=== PATIENT | female | born 1955 | race Caucasian/White ===

== ENCOUNTER → 2017-02-08 | Outpatient (CLI) | payer OTHER | END | disposition home or self-care (01) | LOC: CFH 14:58 | PROVIDERS: ATTEND Family Medicine | DX: N63.13 Unspecified lump in the right breast, lower outer quadrant (principal); R92.2 Inconclusive mammogram | CPT/HCPCS: 76641; G0206 ==

== ENCOUNTER → 2017-02-10 | Outpatient (CLI) | payer OTHER ==
[~2017-02-10] MED LIST: LIDOCAINE 1%-EPI 1:100K, 30ML ONE
== END | disposition home or self-care (01) ==
LOC: CFH 14:16
PROVIDERS: ATTEND Family Medicine
DX: C50.911 Malignant neoplasm of unspecified site of right female breast (principal)
CPT/HCPCS: 19083; 88305; G0206; J3490

== ENCOUNTER → 2017-03-03 | Outpatient (CLI) | payer BC | END | disposition home or self-care (01) | LOC: CFH 15:29 | PROVIDERS: ATTEND Surgery | DX: I65.23 Occlusion and stenosis of bilateral carotid arteries (principal) | CPT/HCPCS: 93880 ==

== ENCOUNTER 2017-04-06 10:29 | Day surgery (SDC) | payer BC ==
[2017-04-05 10:24] LABS: ALANINE AMINOTRANSFERASE 82 U/L (12-78); ALBUMIN 3.9 g/dL (3.4-5.0); ANION GAP 9 mmol/L (5-15); CALCIUM 8.6 mg/dL (8.5-10.1); CHLORIDE 102 mmol/L (98-107); CREATININE 0.78 mg/dL (0.55-1.02)
[2017-04-05 10:26] LABS: ALKALINE PHOSPHATASE 117 U/L (45-117); BILIRUBIN,TOTAL 0.6 mg/dL (0.2-1.0); TOTAL PROTEIN 7.8 g/dL (6.4-8.2)
[~2017-04-06] VITALS: Ht 172.7 cm; Wt 85.1 kg
[~2017-04-06 10:29] MED LIST changes: +AMLO5TAB2 PO; +ESTR0.5T PO; +GABA300C10 PO; +HYDR-3237 PO; +IBUP-1222 PO; -LIDOCAINE 1%-EPI 1:100K, 30ML ONE; +LOSA1TAB25 PO
[2017-04-06] MEDS ORDERED: MIDAZOLAM 1 MG/ML, 2ML ONE (12:05)
[2017-04-06] MEDS ORDERED: FENTANYL PF 250 MCG/5ML ONE (12:05)
[2017-04-06] MEDS ORDERED: PROPOFOL 10 MG/ML, 20ML ONE (12:06)
[2017-04-06] MEDS ORDERED: NEOSTIGMINE 1 MG/ML, 10ML ONE (12:06)
[2017-04-06] MEDS ORDERED: ROCURONIUM 10 MG/ML,10ML ONE ×2 (12:06→15:06)
[2017-04-06] MEDS ORDERED: GLYCOPYRROLATE 0.2MG/1ML, 5ML ONE (12:07)
[2017-04-06] MEDS ORDERED: DEXAMETHASONE 4 MG/ML, 1ML ONE ×2 (12:07)
[2017-04-06] MEDS ORDERED: ONDANSETRON 2MG/ML, 2ML ONE (12:07)
[2017-04-06] MEDS ORDERED: CEFAZOLIN 1,000 MG ONE ×3 (12:08→13:19)
[2017-04-06 12:29] VITALS: BP 159/91
[2017-04-06] MEDS ORDERED: LACTATED RINGERS 1,000 ML IV SCH (12:35)
[2017-04-06] MEDS ORDERED: BACITRACIN 50,000 UNIT ONE (13:19)
[2017-04-06] MEDS ORDERED: GENTAMICIN 80 MG/2 ML ONE (13:19)
[2017-04-06] MEDS ORDERED: ISOSULFAN BLUE 10 MG/ML, 5ML IV ONE (13:19)
[2017-04-06] MEDS ORDERED: EPINEPHRINE 1 MG/ML, 1ML ONE (13:19)
[2017-04-06] MEDS ORDERED: BUPIVACAINE/PF 0.5% ONE (13:19)
[2017-04-06] MEDS ORDERED: MEPERIDINE/PF 25MG/0.5ML IVPush PRN (13:30)
[2017-04-06] MEDS ORDERED: ACETAMINOPHEN 325 MG TABLET PO PRN (13:30)
[2017-04-06] MEDS ORDERED: PROMETHAZINE 25 MG/ML, 1ML IV PRN (13:30)
[2017-04-06] MEDS ORDERED: hydrALAzine 20 MG/ML, 1ML IV PRN (13:30)
[2017-04-06] MEDS ORDERED: ONDANSETRON 2MG/ML, 2ML IVPush PRN (13:30)
[2017-04-06] MEDS ORDERED: LABETALOL 5MG/ML, 20ML IV PRN (13:30)
[2017-04-06] MEDS ORDERED: OXYcodone 5 MG/5 ML ORAL.SOL UDC PO PRN (13:30)
[2017-04-06] MEDS ORDERED: HYDROmorphone 1 MG/ML, 1ML IV PRN (13:30)
[2017-04-06] MEDS ORDERED: PHENYLEPHRINE 10 MG/ML ONE (13:37)
[2017-04-06] MEDS ORDERED: BUPIVACAINE/PF-EPI 0.25% 1:200K INFIL ONE (14:10)
[2017-04-06] MEDS ORDERED: FENTANYL PF 100 MCG/2ML ONE ×3 (14:15→16:48)
[2017-04-06] MEDS ORDERED: ACETAMINOPHEN 650 MG/20.3 ML UDC ONE (16:07)
[2017-04-06] MEDS ORDERED: OXYcodone 5 MG/5 ML ORAL.SOL UDC ONE (16:08)
[2017-04-06] MEDS ORDERED: MEPERIDINE/PF 50 MG/ML ONE (16:08)
[2017-04-06] MEDS: FENTANYL PF 100 MCG/2ML IV PRN ×2 (16:50→17:01)
[2017-04-06] MEDS ORDERED: morphine SULFATE 10 MG/ML, 1ML ONE (17:50)
[2017-04-06] MEDS ORDERED: morphine SULFATE 10 MG/ML, 1ML IVPush PRN (18:00)
== END 2017-04-06 18:55 ==
LOC: OR 10:29 → OUT 18:55
PROVIDERS: ATTEND Surgery
DX: C50.911 Malignant neoplasm of unspecified site of right female breast (principal); I10 Essential (primary) hypertension; Z90.710 Acquired absence of both cervix and uterus
CPT/HCPCS: 19285; 19301; 36415; 38525; 38792; 77065; 80053; 88305; 88307; 88329; 88333; 93005; A9541; C1729; J0171; J0690; J1100; J1580; J2175; J2250; J2370; J2405; J2704; J2710; J3010; J3490; J7120

== ENCOUNTER → 2017-04-21 | Outpatient (CLI) | payer BC | END | disposition home or self-care (01) | LOC: ROC 08:20 | PROVIDERS: ATTEND Radiology Radiation Oncology | DX: C50.511 Malignant neoplasm of lower-outer quadrant of right female breast (principal) | CPT/HCPCS: 99214; G0463 ==

== ENCOUNTER → 2017-09-15 | Outpatient (CLI) | payer BC | END | disposition home or self-care (01) | LOC: CFH 11:55 | PROVIDERS: ATTEND Radiology Radiation Oncology | DX: C50.511 Malignant neoplasm of lower-outer quadrant of right female breast (principal); N61.1 Abscess of the breast and nipple; I10 Essential (primary) hypertension | CPT/HCPCS: 77065 ==

== ENCOUNTER → 2018-01-03 | Outpatient (CLI) | payer BC ==
[~2018-01-03] MED LIST changes: -AMLO5TAB2 PO; +AMLO5TAB7 PO
== END | disposition home or self-care (01) ==
LOC: ROC 13:04
PROVIDERS: ATTEND Radiology Radiation Oncology
DX: Z08 Encounter for follow-up examination after completed treatment for malignant neoplasm (principal); C50.511 Malignant neoplasm of lower-outer quadrant of right female breast
CPT/HCPCS: 99213; G0463

== ENCOUNTER → 2018-03-19 | Outpatient (CLI) | payer BC ==
[~2018-03-19] MED LIST changes: +AMLO-150 PO; -AMLO5TAB7 PO
== END | disposition home or self-care (01) ==
LOC: CFH 14:54
PROVIDERS: ATTEND Radiology Radiation Oncology
DX: Z12.31 Encounter for screening mammogram for malignant neoplasm of breast (principal)
CPT/HCPCS: 77063; 77067

== ENCOUNTER → 2018-03-29 | Outpatient (CLI) | payer BC | END | disposition home or self-care (01) | LOC: CFH 13:34 | PROVIDERS: ATTEND Radiology Radiation Oncology | DX: R92.0 Mammographic microcalcification found on diagnostic imaging of breast (principal); C50.511 Malignant neoplasm of lower-outer quadrant of right female breast | CPT/HCPCS: 77065 ==

== ENCOUNTER 2018-09-05 10:29 | Outpatient (CLI) | payer BC | END 2018-09-05 23:59 | disposition home or self-care (01) | LOC: ROC 10:29 | PROVIDERS: ATTEND Radiology Radiation Oncology | DX: Z08 Encounter for follow-up examination after completed treatment for malignant neoplasm (principal); Z85.3 Personal history of malignant neoplasm of breast | CPT/HCPCS: 99213; G0463 ==

== ENCOUNTER → 2019-04-01 | Outpatient (CLI) | payer BC | END | disposition home or self-care (01) | LOC: CFH 10:27 | PROVIDERS: ATTEND Internal Medicine Hematology & Oncology | DX: Z12.31 Encounter for screening mammogram for malignant neoplasm of breast (principal); N64.89 Other specified disorders of breast | CPT/HCPCS: 77063; 77067 ==

== ENCOUNTER → 2019-09-19 | Outpatient (CLI) | payer BC | END | disposition home or self-care (01) | LOC: CFH 09:34 | PROVIDERS: ATTEND Internal Medicine Hematology & Oncology | DX: C50.511 Malignant neoplasm of lower-outer quadrant of right female breast (principal); M85.89 Other specified disorders of bone density and structure, multiple sites | CPT/HCPCS: 77080 ==